=== PATIENT | female | born 1990 | race Caucasian/White ===

== ENCOUNTER 2021-01-18 16:26 | Emergency (ER) | payer BC ==
--- NOTE | 2021-01-18 16:56 | EDM.PDOC ---
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 Pt does not have periods 2/2 PCOS. However, for the purposes of the implantation LMP considered Dec 07. Pt had post procedure quant HCGs. She was doing well until this afternoon yoga class when she developed significant lower abdominal cramping she then went to wipe and noticed some initial dark blood but now is much pumper hand. This is associated with dysuria. No fevers some pain in the lower back as well. No exacerbating or alleviating factors no radiation or other associated symptoms. lower abdomen Pain Score (Numeric/FACES): 7 - Related Data Allergies Allergy/AdvReac Type Severity Reaction Status Date / Time amoxicillin Allergy Hives Verified 01/18/21 16:52 banana Allergy Itching Verified 01/18/21 16:52 Home Meds: Home Meds . [No Known Home Meds] 01/18/21 [History] Estrogen Patch 01/18/21 [History] Sertraline [Zoloft] 150 mg PO QPM 01/18/21 [History] proGESTerone [Progesterone In Oil] 0 mg IM DAILY 01/18/21 [History] ED ROS GENERAL - Review of Systems Review Of Systems: See Below Free Text/Narrative/Comment: General: No fever. Neck: No neck stiffness. Respiratory: No shortness of breath. Cardiac: No chest pain. Gastrointestinal: No nausea or vomiting, + lower abd cramping Urinary: Per HPI Musculoskeletal: No myalgias/arthralgias. Neurologic: No headache. ED EXAM, GENERAL - Physical Exam Exam: See Below Free Text/Narrative:: General Appearance: No acute distress, appears comfortable Skin: No rash HEENT: Normocephalic/atraumatic, sclera anicteric, mucous membranes moist Neck: Normal range of motion Chest and Lungs: Bilateral breath sounds, clear to auscultation Cardiovascular: Regular rate and rhythm, no murmur Abdomen: Soft, non-tender Back: Normal Musculoskeletal: No edema or tenderness Neurologic: Awake, alert, no obvious deficits, moving all extremities Psychiatric: Appropriate, cooperative Departure - Departure Disposition: Home, Self-Care 01 Clinical Impression: Threatened - Discharge Information Instructions: Threatened Miscarriage, [place]azm-to-Fbyu Referrals: PCP,None [Primary Care Provider] - Forms: ED Department Discharge Additional Instructions: You evaluate today on an emergent basis. At this time you are experiencing a threatened miscarriage. As we discussed the ultrasound did show a single live intrauterine however given that there is vaginal bleeding in your first trimester there is increased risk of miscarriage. It is extremely important that she follow-up with [facility] for further monitoring and evaluation. They will be contacting you tomorrow for an appointment. If you doe ve any new or worsening symptoms such as increased vaginal bleeding or pain please return to the emergency department. If they do not contact you tomorrow the numbers provided below. Please contact them for follow-up. [facility] [address] [place], [place] [id number] [facility] [place] [address] The patient is informed of any results of their evaluation and diagnostic workup and all questions are answered. They are given discharge instructions and return precautions. The patient is stable for discharge. The patient states they understand and agree with the plan and that they will return if their symptoms get worse or if they have any new concerns. The following information is given to patients seen in the emergency department who are being discharged to home. This information is to outline your options for follow-up care. We provide all patients seen in our emergency department with a follow-up referral. The need for follow-up, as well as the timing and circumstances, are variable depending upon the specifics of your emergency department visit. If you don't have a primary care physician on staff, we will provide you with a referral. We always advise you to contact your personal physician following an emergency department visit to inform them of the circumstance of the visit and for follow-up with them and/or the need for any referrals to a consulting specialist. The emergency department will also refer you to a specialist when appropriate. This referral assures that you have the opportunity for follow-up care with a specialist. All of these measure are taken in an effort to provide you with optimal care, which includes your follow-up. Under all circumstances we always encourage you to contact your private physician who remains a resource for coordinating your care. When calling for follow-up care, please make the office aware that this follow-up is from your recent emergency room visit. If for any reason you are refused follow-up, please contact the [facility] Emergency Department at and asked to speak to the emergency department charge nurse. - Assessment/Plan Assessment:: 30-year-old female presenting with signs and symptoms most consistent with threatened miscarriage versus UTI. Nontoxic in appearance with benign abdomen. CBC, CMP, quantitative hCG, and ultrasound ordered, pelvic pending. I was just informed by nursing that when she tried to void for urine sample she passed significant blood and clots. 1820: We continue to await blood work. Patient now has significant nausea and some lightheadedness given this 1 L of IV fluid and antinausea medicine will be ordered. Pelvic exam is pending on ultrasound there was a single live intrauterine gestation with a heartbeat. Remainder of ultrasound report is pending. 1856: Patient's vital signs are normal. Patient's pelvic exam reveals a single small dark blood clot in the vaginal vault that was easily removed no direct visualization of the cervix was possible but there is no repooling no signs of active hemorrhage but some slow dark oozing. External cervical os closed on digital exam. Formal US read remains pending. This result, discussion with OB and final disposition signed out to Dr. Hyman. <Dhaval Hyman - Last Filed: 01/19/21 03:23> ED HPI GENERAL MEDICAL PROBLEM - History of Present Illness INITIAL COMMENTS - FREE TEXT/NARRATIVE: Patient was signed out to me by Dr. Maharaj pending ultrasound read and discussion with obstetrics at 7PM Labs reviewed with a CBC revealing a leukocytosis of 13.64 with normal indices. CMP was unremarkable. Quantitative hCG was 19,750. Urinalysis did show hematuria with nitrites however there was a large clot. The radiological images were viewed by myself along with reading the report from the radiologist. Transvaginal OB ultrasound reveals a single live intrauterine gestation with an estimated gestational age of 5 weeks and 5 days. cardiac to be was at 112/min. After imaging I did contact Dr. Montiel to discuss the case with her. She stated that her RN would contact for follow-up tomorrow. In discussion we will obtain a type and screen to evaluate for RhoGam administration. I did discuss the results with the patient. The patient continued to remain stable and her bleeding had improved. I discussed with her that she would need to follow-up closely with obstetrics. She was amenable to this plan. Type and screen reveals a positive therefore no RhoGam will be administered DISPOSITION: The patient was discharged home in stable condition. The patient will follow up with [facility] within 2 to 3 days CONDITION: Fair PROCEDURES: None FINAL IMPRESSION(S)/DIAGNOSES: 1. Acute threatened Dhaval Hyman M.D. Course - Vital Signs Last Recorded V/S: Last Vital Signs Temp 36.6 C 01/18/21 16:27 Pulse 92 01/18/21 20:47 Resp 18 01/18/21 20:47 BP 136/88 01/18/21 20:47 Pulse Ox 98 01/18/21 20:47 - Orders/Labs/Meds Labs: Laboratory Tests 01/18/21 01/18/21 01/18/21 Range/Units 16:50 17:15 17:15 WBC 13.64 H (4.0-11.0) K/uL RBC 4.50 (4.30-5.90) M/uL Hgb 14.0 (12.0-16.0) g/dL Hct 40.1 (36.0-46.0) % MCV 89.1 (80.0-98.0) fL MCH 31.1 (27.0-32.0) pg MCHC 34.9 (31.0-37.0) g/dL RDW Std Deviation 38.4 (28.0-62.0) fl RDW Coeff of Renee 12 (11.0-15.0) % Plt Count 334 (150-400) K/uL MPV 9.00 (7.40-12.00) fL Neut % (Auto) 67.9 (48.0-80.0) % Lymph % (Auto) 23.3 (16.0-40.0) % Braxton % (Auto) 5.5 (0.0-15.0) % Eos % (Auto) 3.1 (0.0-7.0) % Baso % (Auto) 0.2 (0.0-1.5) % Neut # (Auto) 9.3 H (1.4-5.7) K/uL Lymph # (Auto) 3.2 H (0.6-2.4) K/uL Braxton # (Auto) 0.8 (0.0-0.8) K/uL Eos # (Auto) 0.4 (0.0-0.7) K/uL Baso # (Auto) 0.0 (0.0-0.1) K/uL Nucleated RBC % 0.0 /100WBC Nucleated RBCs # 0 K/uL Sodium 137 (136-145) mmol/L Potassium 3.9 (3.5-5.1) mmol/L Chloride 101 (98-107) mmol/L Carbon Dioxide 23.2 (21.0-32.0) mmol/L BUN 12 (7.0-18.0) mg/dL Creatinine 0.8 (0.6-1.0) mg/dL Est Cr Clr Drug Dosing 79.85 mL/min Estimated GFR (MDRD) > 60.0 ml/min Glucose 101 (74-106) mg/dL Calcium 9.0 (8.5-10.1) mg/dL Total Bilirubin 0.2 (0.2-1.0) mg/dL AST 12 L (15-37) IU/L ALT 31 (14-63) IU/L Alkaline Phosphatase 40 L (46-116) U/L Total Protein 7.3 (6.4-8.2) g/dL Albumin 3.4 (3.4-5.0) g/dL Globulin 3.9 (2.6-4.0) g/dL Albumin/Globulin Ratio 0.9 (0.9-1.6) HCG, Quant 42371.0 mIU/mL Urine Color RED Urine Appearance CLOUDY Urine pH 7.0 (5.0-8.0) Ur Specific Rufus 1.010 (1.001-1.035) Urine Protein >=300 H (NEGATIVE) mg/dL Urine Glucose (UA) 100 H (NEGATIVE) mg/dL Urine Ketones 15 H (NEGATIVE) mg/dL Urine Occult Blood LARGE H (NEGATIVE) Urine Nitrite POSITIVE H (NEGATIVE) Urine Bilirubin NEGATIVE (NEGATIVE) Urine Urobilinogen 4.0 H (<2.0) EU/dL Ur Leukocyte Esterase MODERATE H (NEGATIVE) Urine RBC TOO NUMEROUS TO CT H (0-2/HPF) Urine WBC 0-2 (0-5/HPF) Ur Epithelial Cells RARE (NONE-FEW) Urine Bacteria RARE (NEGATIVE) Urinalysis Comment Blood Type Antibody Screen 01/18/21 Range/Units 19:36 WBC (4.0-11.0) K/uL RBC (4.30-5.90) M/uL Hgb (12.0-16.0) g/dL Hct (36.0-46.0) % MCV (80.0-98.0) fL MCH (27.0-32.0) pg MCHC (31.0-37.0) g/dL RDW Std Deviation (28.0-62.0) fl RDW Coeff of Renee (11.0-15.0) % Plt Count (150-400) K/uL MPV (7.40-12.00) fL Neut % (Auto) (48.0-80.0) % Lymph % (Auto) (16.0-40.0) % Braxton % (Auto) (0.0-15.0) % Eos % (Auto) (0.0-7.0) % Baso % (Auto) (0.0-1.5) % Neut # (Auto) (1.4-5.7) K/uL Lymph # (Auto) (0.6-2.4) K/uL Braxton # (Auto) (0.0-0.8) K/uL Eos # (Auto) (0.0-0.7) K/uL Baso # (Auto) (0.0-0.1) K/uL Nucleated RBC % /100WBC Nucleated RBCs # K/uL Sodium (136-145) mmol/L Potassium (3.5-5.1) mmol/L Chloride (98-107) mmol/L Carbon Dioxide (21.0-32.0) mmol/L BUN (7.0-18.0) mg/dL Creatinine (0.6-1.0) mg/dL Est Cr Clr Drug Dosing mL/min Estimated GFR (MDRD) ml/min Glucose (74-106) mg/dL Calcium (8.5-10.1) mg/dL Total Bilirubin (0.2-1.0) mg/dL AST (15-37) IU/L ALT (14-63) IU/L Alkaline Phosphatase (46-116) U/L Total Protein (6.4-8.2) g/dL Albumin (3.4-5.0) g/dL Globulin (2.6-4.0) g/dL Albumin/Globulin Ratio (0.9-1.6) HCG, Quant mIU/mL Urine Color Urine Appearance Urine pH (5.0-8.0) Ur Specific Rufus (1.001-1.035) Urine Protein (NEGATIVE) mg/dL Urine Glucose (UA) (NEGATIVE) mg/dL Urine Ketones (NEGATIVE) mg/dL Urine Occult Blood (NEGATIVE) Urine Nitrite (NEGATIVE) Urine Bilirubin (NEGATIVE) Urine Urobilinogen (<2.0) EU/dL Ur Leukocyte Esterase (NEGATIVE) Urine RBC (0-2/HPF) Urine WBC (0-5/HPF) Ur Epithelial Cells (NONE-FEW) Urine Bacteria (NEGATIVE) Urinalysis Comment Blood Type A POSITIVE Antibody Screen NEGATIVE Meds: Medications Discontinued Medications Generic Name Dose Route Start Last Admin Trade Name Freq PRN Reason Stop Dose Admin Lactated Ringer's 1,000 mls @ 999 mls/hr 01/18/21 18:18 01/18/21 18:27 Ringers, Lactated IV 01/18/21 19:18 999 mls/hr .BOLUS ONE Administration Metoclopramide HCl 5 mg 01/18/21 18:18 01/18/21 18:28 Reglan IVPUSH 01/18/21 18:19 5 mg ONETIME ONE Administration Departure - Departure Time of Disposition: 20:23 Condition: Fair - Discharge Information *PRESCRIPTION DRUG MONITORING PROGRAM REVIEWED*: No *COPY OF PRESCRIPTION DRUG MONITORING REPORT IN PATIENT RAFAELA: No Sepsis Event Note (ED) - Focused Exam Vital Signs: Vital Signs Temp Pulse Resp BP Pulse Ox 01/18/21 20:47 92 18 136/88 98 01/18/21 19:00 94 18 120/66 96 01/18/21 18:30 104 H 17 130/82 99 01/18/21 16:27 36.6 C 107 H 18 151/102 H 97
[2021-01-18 18:08] LABS: BLOOD UREA NITROGEN,BUN 12 mg/dL (7.0-18.0); CARBON DIOXIDE,CO2 23.2 mmol/L (21.0-32.0); CHLORIDE,CL 101 mmol/L (98-107); GLUCOSE RANDOM 101 mg/dL (74-106); POTASSIUM,K 3.9 mmol/L (3.5-5.1); SODIUM,NA 137 mmol/L (136-145)
[2021-01-18] MEDS ORDERED: Metoclopramide 10 MG/2 ML SDV IVPUSH ONE (18:18)
[2021-01-18] MEDS ORDERED: Lactated Ringers 1,000 ML IV ONE (18:18)
--- NOTE | 2021-01-18 19:02 | US ---
HISTORY: Abdominal pain and vaginal bleeding in . TECHNIQUE: Ultrasound of the pelvis using transvaginal technique. COMPARISON: None. FINDINGS: Single intrauterine gestational sac. Gestational sac has somewhat elongated morphology. pole is present. [place]-rump length of 2 mm corresponds to estimated gestational age 5 weeks 5 days. cardiac activity with heart rate 112 beats per minute. Probable 1 mm yolk sac. No perigestational fluid collection. Right ovary measures 3.3 x 2.4 x 3.1 cm. Normal appearance the right ovary. Blood flow present in the right ovary with normal spectral Doppler waveforms. Left ovary is not visualized. No free fluid in the pelvis. IMPRESSION: 1. Single live intrauterine gestation with estimated gestational age 5 weeks 5 days. 2. No perigestational fluid collection. 3. Normal appearing right ovary. Left ovary is not visualized. Dictated by Alex Be MD @ Jan 18 2021 6:56PM Signed by Dr. Alex Be @ Jan 18 2021 7:01PM
== END 2021-01-18 21:00 | disposition home or self-care (01) ==
LOC: MW.ED 16:26
DX: O20.0 Threatened abortion (principal); Z88.0 Allergy status to penicillin; Z91.018 Allergy to other foods; Z3A.01 Less than 8 weeks gestation of pregnancy
CPT/HCPCS: 36415; 76801; 80053; 81001; 84702; 85025; 86850; 86900; 86901; 96374; 99284; J2765; J7120

== ENCOUNTER 2021-09-04 00:30 | Inpatient (IN) | payer BC ==
[2021-09-04] MEDS ORDERED: Tranexamic Acid 1,000 MG in Sodium Chloride 0.9% 100 ML IV PRN (01:19)
[2021-09-04] MEDS ORDERED: Sodium Chloride 0.9% 10 ML SDV IV PRN (01:19)
[2021-09-04] MEDS ORDERED: Lidocaine 1% 50 ML MDV INJECT PRN (01:19)
[2021-09-04] MEDS ORDERED: Misoprostol 200 MCG Tab PO PRN (01:19)
[2021-09-04] MEDS ORDERED: Terbutaline 1 MG/ML SDV SUBCUT PRN (01:19)
[2021-09-04] MEDS ORDERED: Sodium Chloride 0.9% 2.5 ML Syringe FLUSH PRN (01:19)
[2021-09-04] MEDS ORDERED: Water For Irrigation,Sterile 1,000 ML Container IRR PRN (01:19)
[2021-09-04] MEDS ORDERED: Carboprost Tromethamine 250 MCG/1 ML Amp IM PRN (01:19)
[2021-09-04] MEDS ORDERED: Butorphanol 1 MG/ML SDV IVPUSH PRN (01:19)
[2021-09-04] MEDS ORDERED: Sodium Chloride 0.9% 10 ML Syringe FLUSH PRN (01:19)
[2021-09-04] MEDS ORDERED: Methylergonovine 0.2 MG/1 ML Amp IM PRN (01:19)
[2021-09-04] MEDS ORDERED: Oxytocin/0.9 % Sodium Chloride 30 UNIT/500 ML BAG IV SCH ×2 (01:30)
[2021-09-04] MEDS: Lactated Ringers 1,000 ML IV SCH ×5 (02:13→22:30)
[2021-09-04] MEDS: Misoprostol 25 MCG (1/4 of 100 MCG) Tab VAG PRN ×4 (02:14→14:47)
[2021-09-04] MEDS ORDERED: busPIRone 5 MG Tab PO ONE (07:35)
[2021-09-04] MEDS: Labetalol 100 MG Tab PO SCH ×2 (09:36→21:38)
[2021-09-04] MEDS ORDERED: Insulin Regular in 0.9 % NACL 100 ML IV SCH (12:45)
--- NOTE | 2021-09-04 13:34 | PCM.PREANE ---
Preanesthetic Assessment - Anesthesia/Transfusion/Family Hx Anesthesia History: Prior Anesthesia Without Reaction Family History of Anesthesia Reaction: No Transfusion History: No Prior Transfusion(s) - Review of Systems General: Other (Gestational DM requiring insulin) Pulmonary: No Symptoms Cardiovascular: Other (Hypertension well controlled on Beta Tess) Gastrointestinal: No Symptoms Neurological: No Symptoms, Other (Panic attacks which cause numbness in arms and legs) Other: Reports: Anxiety - Physical Assessment NPO Status Date: 09/04/21 NPO Status Time: 12:00 Vital Signs: Last Vital Signs Temp Pulse 83 09/04/21 09:36 Resp BP 127/84 09/04/21 09:36 Pulse Ox Height: 1.57 m Weight: 102.058 kg ASA Class: 2 Mental Status: Alert & Oriented x3 Airway Class: Mallampati = 2 Dentition: Reports: Normal Dentition Thyro-Mental Finger Breadths: 3 Mouth Opening Finger Breadths: 3 ROM/Head Extension: Full Lungs: Clear to Auscultation, Normal Respiratory Effort Cardiovascular: Regular Rate, Regular Rhythm - Lab Values: Laboratory Last Values WBC 8.78 K/uL (4.0-11.0) 09/04/21 01:45 RBC 4.13 M/uL (4.30-5.90) L 09/04/21 01:45 Hgb 12.8 g/dL (12.0-16.0) 09/04/21 01:45 Hct 37.1 % (36.0-46.0) 09/04/21 01:45 MCV 89.8 fL (80.0-98.0) 09/04/21 01:45 MCH 31.0 pg (27.0-32.0) 09/04/21 01:45 MCHC 34.5 g/dL (31.0-37.0) 09/04/21 01:45 RDW Std Deviation 43.1 fl (28.0-62.0) 09/04/21 01:45 RDW Coeff of Renee 13 % (11.0-15.0) 09/04/21 01:45 Plt Count 290 K/uL (150-400) 09/04/21 01:45 MPV 10.10 fL (7.40-12.00) 09/04/21 01:45 Nucleated RBC % 0.0 /100WBC 09/04/21 01:45 Nucleated RBCs # 0 K/uL 09/04/21 01:45 POC Glucose 89 mg/dL (70-99) 09/04/21 12:32 Blood Type A POSITIVE 09/04/21 01:45 Antibody Screen NEGATIVE 09/04/21 01:45 - Allergies Allergies/Adverse Reactions: Allergies Allergy/AdvReac Type Severity Reaction Status Date / Time amoxicillin Allergy Hives Verified 01/18/21 16:52 banana Allergy Itching Verified 01/18/21 16:52 - Blood Blood Available: Yes Product(s) Available: PRBC (Type and Screen) - Anesthesia Plan Pre-Op Medication Ordered: Antacids, Anxiolytic, Beta Tess Beta Tess: Atenolol Med Last Dose Date: 09/04/21 Med Last Dose Time: 08:00 - Acknowledgements Anesthesia Type Planned: Epidural Pt an Appropriate Candidate for the Planned Anesthesia: Yes Alternatives and Risks of Anesthesia Discussed w Pt/Guardian: Yes Pt/Guardian Understands and Agrees with Anesthesia Plan: Yes Additional Comments: Pt comments that she has panic attacks which result in numbness and weakness of arms. Further discussion details that she does not have neurological disease and this only occurs when she has panic attacks. pt expressed concerns that the numb sensation of the epidural could trigger a panic attack. I explained that this was beyond my understanding and that she may desire to discuss this with her mental healthcare provider. I did offer that the epidural can be discontinued should it illicit a panic attack but that restarting the epidural may result in lack of complete coverage. pt denies need to seek further consultation from mental health and states she "will be ok" with numbness associated with epidural. 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: None, Other (See Below) Other OB/BYN History: PCOS, IVF Psychiatric History: Reports: Addiction, Depression - Past Surgical History HEENT Surgical History: Reports: Oral Surgery - SUBSTANCE USE Tobacco Use Status *Q: Never Tobacco User Second Hand Smoke Exposure: No - HOME MEDS Home Medications: Home Meds Sertraline [Zoloft] 150 mg PO QPM 01/18/21 [History] proGESTerone [Progesterone In Oil] 0 mg IM DAILY 01/18/21 [History] Insulin Glarg,Human.Rec.Analog [Lantus] 27 unit SUBCUT BID 09/04/21 [History] Labetalol HCl [Labetalol] 100 mg PO BID 09/04/21 [History] busPIRone [Buspar] 20 mg PO 09/04/21 [History] - CURRENT (IN HOUSE) MEDS Current Meds: Current Medications Butorphanol Tartrate (Butorphanol 1 Mg/Ml Sdv) 1 mg IVPUSH Q1H PRN PRN Reason: Pain (severe 7-10) Carboprost Tromethamine (Carboprost Tromethamine 250 Mcg/1 Ml Amp) 250 mcg IM ASDIRECTED PRN PRN Reason: Post Hemorrhage Oxytocin/Sodium Chloride (Oxytocin 30 Unit In Ns 0.9% 500 Ml Premix) 30 unit in 500 mls @ 250 mls/hr IV TITRATE POORNIMA Tranexamic Acid 1,000 mg/ (Sodium Chloride) 110 mls @ 660 mls/hr IV ONETIME PRN PRN Reason: Bleeding Oxytocin/Sodium Chloride (Oxytocin 30 Unit In Ns 0.9% 500 Ml Premix) 30 unit in 500 mls @ 2 mls/hr IV TITRATE POORNIMA; Protocol Lactated Ringer's (Ringers, Lactated) 1,000 mls @ 150 mls/hr IV ASDIRECTED [facility] Last Admin: 09/04/21 10:53 Dose: 150 mls/hr Documented by: Insulin Regular in 0.9 % NACL (Myxredlin In Ns 100 Unit/100 Ml) 100 mls @ 0.5 mls/hr IV TITRATE [facility]; Protocol Dextrose/Lactated Ringer's (Dextrose 5%-Lactated Ringers) 1,000 mls @ 100 ml s/hr IV ASDIRECTED [facility] Labetalol HCl (Labetalol 100 Mg Tab) 100 mg PO BID [facility] Last Admin: 09/04/21 09:36 Dose: 100 mg Documented by: Lidocaine HCl (Lidocaine 1% 50 Ml Mdv) 50 ml INJECT ONETIME PRN PRN Reason: Laceration repair Methylergonovine Maleate (Methylergonovine 0.2 Mg/1 Ml Amp) 0.2 mg IM ASDIRECTED PRN PRN Reason: Post Hemorrhage Misoprostol (Misoprostol 200 Mcg Tab) 200 mcg PO ONETIME PRN PRN Reason: Post Hemorrhage Misoprostol (Misoprostol 25 Mcg (1/4 Of 100 Mcg) Tab) 25 mcg VAG Q4H PRN PRN Reason: Cervical Ripening Last Admin: 09/04/21 10:44 Dose: 25 mcg Documented by: Sodium Chloride (Sodium Chloride 0.9% 10 Ml Syringe) 10 ml FLUSH ASDIRECTED PRN PRN Reason: Keep Vein Open Sodium Chloride (Sodium Chloride 0.9% 2.5 Ml Syringe) 2.5 ml FLUSH ASDIRECTED PRN PRN Reason: Keep Vein Open Sodium Chloride (Sodium Chloride 0.9% 10 Ml Sdv) 10 ml IV ASDIRECTED PRN PRN Reason: IV Use Sterile Water (Water For Irrigation,Sterile 1,000 Ml Container) 1,000 ml IRR ASDIRECTED PRN PRN Reason: delivery Terbutaline Sulfate (Terbutaline 1 Mg/Ml Sdv) 0.25 mg SUBCUT ASDIRECTED PRN PRN Reason: Tacysystole Discontinued Medications Buspirone HCl (Buspirone 5 Mg Tab) 20 mg PO ONETIME ONE Stop: 09/04/21 07:36 Last Admin: 09/04/21 09:37 Dose: 20 mg Documented by:
[2021-09-04] MEDS: Ondansetron 4 MG/2 ML SDV IVPUSH PRN (18:04)
[2021-09-04] MEDS: Dextrose 5%-Lactated Ringers 1,000 ML IV SCH (19:01)
[2021-09-04] MEDS ORDERED: Ropivacaine HCl/PF 200 ML ONE (19:47)
[2021-09-04] MEDS ORDERED: ePHEDrine 50 MG/ML SDV IVPUSH PRN (20:35)
--- NOTE | 2021-09-04 20:35 | PCM.POSTAN ---
POST ANESTHESIA ASSESSMENT - MENTAL STATUS Mental Status: Alert, Oriented - VITAL SIGNS Vital Signs: Last Vital Signs Temp Pulse 83 09/04/21 09:36 Resp BP 127/84 09/04/21 09:36 Pulse Ox - RESPIRATORY Respiratory Status: Respiratory Rate WNL, Airway Patent, O2 Saturation Stable - CARDIOVASCULAR CV Status: Pulse Rate WNL, Blood Pressure Stable - GASTROINTESTINAL GI Status: No Symptoms - POST OP HYDRATION Hydration Status: Adequate & Stable
--- NOTE | 2021-09-04 20:35 | PCM.SN.2 ---
Time Documentation - Pre-Procedure Checklist Attending Provider Aware: Yes Chart Reviewed: Yes Consent Signed: Yes Labs Reviewed: Yes VS/FHR Reviewed: Yes Patient Identification Confirmation Method: Reports: Chart Visual, Verbal Patient Pt an Appropriate Candidate for the Planned Anesthesia: Yes Alternatives and Risks of Anesthesia Discussed w Pt/Guardian: Yes - Procedure Procedure Start Date: 09/04/21 Procedure Start Time: 19:[address]: Reports: Blood Pressure, Heart Rate, SPO2 Functional IV: Yes Safety Measures: Reports: Patient Identified, Procedure Verified, Site Verified, Procedure Time Out Patient Position: Reports: Sitting Prep: Reports: Betadine x3 Local Anesthetic: Reports: Intradermal Wheal w Lidocaine 1% (3ml) Regional Placement Level: Reports: L3-4 Needle: Reports: 17 g Touhy Approach: Reports: Midline Technique: Reports: IKE Glass Syringe IKE Needle Depth (cm): 6.5 cm Parasthesia: Reports: None Fluid Obtained: Reports: None Catheter Depth at Skin (cm): 15 cm Test Dose Time: 20:07 Test Dose Medication: Reports: Lidocaine 1.5% w Epinephrine 1:200,000 (5ml) Test Dose Response: Reports: Negative Loading Dose Time: 20:18 Loading Dose Medication: Ropivicaine 0.2% Loading Dose Patient Position: Supine Continuous Infusion Start Time: 20:19 Continuous Infusion Medication: Ropivicaine 0.2% Continuous Infusion Rate: 10 Continuous Infusion PCS Bolus Option: 4 Continuous Infusion Lockout Dose (cc/hr): 15 Patient Position Post Placement: Reports: Supline/HOMAR Post-procedure Pain Level: 2 Level Achieved: T4 VS and FHR Monitored in Unit Post Placement: Yes Procedure End Date: 09/04/21 Procedure End Time: 20:19 Procedure Comment: Sterile technique maintained throughout placement.
[2021-09-04] MEDS ORDERED: Ropivacaine/PF 400 MG/200 ML PCA EPIDUR SCH (20:45)
[2021-09-04] MEDS: Sertraline 100 MG Tab PO SCH (21:40)
[2021-09-04] MEDS: Calcium Carbonate 500 MG Tab.Chew PO PRN (22:26)
[2021-09-04] MEDS ORDERED: Citric Acid/Sodium Citrate Solution 30 ML Cup PO ONE (23:20)
[2021-09-05] MEDS: Ondansetron 4 MG/2 ML SDV IVPUSH PRN ×3 (00:17→12:28)
[2021-09-05] MEDS: Lactated Ringers 1,000 ML IV SCH ×2 (05:19→13:46)
[2021-09-05] MEDS: Dextrose 5%-Lactated Ringers 1,000 ML IV SCH ×2 (05:20→13:45)
[2021-09-05] MEDS: Calcium Carbonate 500 MG Tab.Chew PO PRN (05:38)
[2021-09-05] MEDS: Labetalol 100 MG Tab PO SCH (08:57)
[2021-09-05] MEDS: busPIRone 5 MG Tab PO SCH (09:32)
[2021-09-05] MEDS ORDERED: Ropivacaine HCl/PF 200 ML ONE (10:53)
[2021-09-05] MEDS ORDERED: Acetaminophen 500 MG Tab PO ONE (15:06)
[2021-09-05] MEDS ORDERED: Acetaminophen 500 MG Tab ONE (15:09)
[2021-09-05] MEDS ORDERED: Clindamycin Phosphate in D5W 900 MG in Premix Bag 1 BAG IV ONE ×2 (17:36)
[2021-09-05] MEDS ORDERED: Citric Acid/Sodium Citrate Solution 30 ML Cup PO ONE (17:36)
[2021-09-05] MEDS ORDERED: Glycopyrrolate 0.2 MG/ML SDV ONE (18:24)
[2021-09-05] MEDS ORDERED: Oxytocin 10 Units/1 ML SDV ONE (18:24)
[2021-09-05] MEDS ORDERED: ePHEDrine 50 MG/ML SDV ONE (18:24)
[2021-09-05] MEDS ORDERED: Morphine PF 10 MG/10 ML SDV ONE (18:35)
[2021-09-05] MEDS ORDERED: Oxytocin 10 Units/1 ML SDV IM PRN (19:14)
[2021-09-05] MEDS ORDERED: Acetaminophen/oxyCODONE 325-5 MG Tab PO PRN (19:14)
[2021-09-05] MEDS ORDERED: diphenhydrAMINE 50 MG/ML SDV IVPUSH PRN (19:14)
[2021-09-05] MEDS ORDERED: Ondansetron 4 MG/2 ML SDV IVPUSH PRN (19:14)
[2021-09-05] MEDS ORDERED: Bisacodyl 10 MG Supp RECTAL PRN (19:14)
[2021-09-05] MEDS ORDERED: Lanolin 100% Cream 7 GM Tube TOP PRN (19:14)
[2021-09-05] MEDS ORDERED: Lactated Ringers 1,000 ML IV SCH (19:15)
--- NOTE | 2021-09-05 19:26 | PCM.OPNOTE ---
- General Post-Op/Procedure Note Date of Surgery/Procedure: 09/05/21 Operative Procedure(s): Primary LTCS Findings: Viable female APGARs 7, 6, 8 weight 3480 gm. Delivery intact placenta with 3V cord Pre Op Diagnosis: 38/6 week IUP. Arrest of dilation. GDM insulin dependent. Chronic HTN. IVF conception Post-Op Diagnosis: Same Anesthesia Technique: Epidural Primary Surgeon: Tammy Oconnell Fluid Replacement, Intraop: 1,500 EBL in mLs: 800 Complications: none known Condition: Stable Free Text/Narrative:: Intake & Output 09/05/21 09/05/21 09/05/21 06:59 14:59 22:59 Output Total 800 450 Balance -800 -450 Dictation [id number]
--- NOTE | 2021-09-05 19:43 | PCM48HPAN ---
Post Anesthesia Note - EVALUATION WITHIN 48HRS OF ANESTHETIC Vital Signs in Normal Range: Yes Patient Participated in Evaluation: Yes Respiratory Function Stable: Yes Airway Patent: Yes Cardiovascular Function Stable: Yes Hydration Status Stable: Yes Pain Control Satisfactory: Yes Nausea and Vomiting Control Satisfactory: Yes Mental Status Recovered: Yes Vital Signs: Last Vital Signs Temp 37.8 C 09/05/21 15:12 Pulse 91 09/05/21 08:57 Resp BP 119/71 09/05/21 08:57 Pulse Ox
--- NOTE | 2021-09-05 19:43 | PCM.POSTAN ---
POST ANESTHESIA ASSESSMENT - MENTAL STATUS Mental Status: Alert, Oriented - VITAL SIGNS Vital Signs: Last Vital Signs Temp 37.8 C 09/05/21 15:12 Pulse 91 09/05/21 08:57 Resp BP 119/71 09/05/21 08:57 Pulse Ox - RESPIRATORY Respiratory Status: Respiratory Rate WNL, Airway Patent, O2 Saturation Stable - CARDIOVASCULAR CV Status: Pulse Rate WNL, Blood Pressure Stable - GASTROINTESTINAL GI Status: No Symptoms - POST OP HYDRATION Hydration Status: Adequate & Stable
[2021-09-05] MEDS: Ketorolac 30 MG/ML SDV IVPUSH SCH (21:06)
[2021-09-05] MEDS: Docusate Sodium 100 MG Cap PO SCH (21:14)
[2021-09-05] MEDS: Sertraline 100 MG Tab PO SCH (21:14)
--- NOTE | 2021-09-05 21:36 | OR ---
SURGEON: Tammy Oconnell M.D. DATE OF PROCEDURE: 09/05/2021 PREOPERATIVE DIAGNOSES: 1. 38 and 6 weeks' intrauterine . 2. Arrest of dilation. 3. Gestational diabetes, insulin dependent. 4. Chronic hypertension. 5. In vitro fertilisation conception. POSTOPERATIVE DIAGNOSES: 1. 38 and 6 weeks' intrauterine . 2. Arrest of dilation. 3. Gestational diabetes, insulin dependent. 4. Chronic hypertension. 5. In vitro fertilisation conception. PROCEDURE: Primary low-transverse section. PRIMARY SURGEON: Tammy Oconnell M.D. ANESTHESIA: Epidural. ESTIMATED BLOOD LOSS: 800 mL. FLUIDS: 1500 mL of crystalloid in the OR. COMPLICATIONS: None known. FINDINGS: Viable female. scores of 7 at one minute, 6 at five minutes, 8 at 10 minutes. Delivery of intact placenta, 3-vessel cord. DISPOSITION: to nursery, mom in LDRP. PROCEDURE DETAILS: Lucila is a 31-year-old, G1, P0, at 38 and 6 weeks' gestational age, who presented early Tuesday morning for induction of labor due to her gestational diabetes, chronic hypertension, and history of IVF conception. She was initiated on Cytotec ripening underwent four doses of this along with cervical Pastor balloon. This balloon was then extruded and she was found to be 4 cm, 70% effaced, -2 station. She is group B beta strep negative, underwent amniotomy. Clear fluid was returned. For most of this, she has been having category 1 heart tones throughout the day. I began Pitocin and titrated this to an adequate contraction pattern. An IUPC was placed. Shortly after, she received her epidural and was more comfortable. The patient was 4 to 5 cm, 80% effaced, -2 station. Thereafter, even despite adequate contraction pattern over the next number of hours, she made no cervical change. In fact, the head was starting to have caput. She was noted to have a fairly narrow suprapubic arch. Therefore, options were discussed with her. At this juncture, she would like to proceed with delivery. Risks of procedure were discussed, proper consent obtained. The patient was taken to the operating room where she underwent re-bolus of her epidural, was placed in dorsal lithotomy position with leftward tilt. SCDs to lower extremities, Pastor to gravity, was prepped and draped in the usual sterile fashion. Time-out was performed. Anesthesia was tested and found to be adequate. Pfannenstiel skin incision was created and carried down to the level of the rectus fascia which was incised in midline and lateralized on either side sharply and bluntly. The superior aspect of the fascia was tented upward, dissected sharply and bluntly from the underlying muscle. In similar aspect, this was performed with the inferior aspect of fascia. Rectus muscle was in midline. Peritoneum was entered. Rectus muscle and peritoneum were now lateralized bluntly. Uterine position and position palpated. Self-retaining retractor was gently placed. The bladder was quite distended and had not been draining properly due to the head position. Therefore, this was reduced. Bladder flap was created sharply and bluntly and bladder was mobilized away from lower uterine segment. Low transverse hysterotomy was then performed. Uterine cavity was entered with blunt end of the scalpel. Hysterotomy was lateralized bluntly. The infant's head was flexed and delivered with fundal pressure being applied, followed by anterior shoulder, posterior shoulder, and remainder of body without difficulty. The 's oropharynx and nares were bulb-suctioned. After a delay, cord was clamped x2 and cut. was handed off to attending operation shift supervisor with nursery staff. Cord arterial, cord venous, cord blood sampling was obtained. The placenta was now delivered. Uterine cavity was cleared of all clot and debris. Hysterotomy was repaired using 0 Vicryl in continuous running locked fashion followed by a re-imbricating layer. Area of bleeding along the midline was re-plicated with three [id number] sutures. Did use a CT-2 needle for this. Hemostasis was thereafter evident. Uterus remained firm. Colonic gutters were cleared of all clot and debris, well irrigated and suction dried. Hemostasis along the hysterotomy was once again inspected and found to be hemostatic. Self-retaining tractor gently removed. Bladder blade was placed. Hysterotomy was inspected and found to be hemostatic. Rectus muscles and peritoneum were now reapproximated using 0 Vicryl in inverted mattress suture technique. Anterior aspect of the fascia and posterior fascia were closely inspected. Any areas of oozing were cauterized. The rectus fascia was now reapproximated using 0 Vicryl in continuous running fashion beginning laterally on either side and meeting in the midline. Subcutaneous tissues well irrigated and suction dried. Any areas of oozing were cauterized. Region was well irrigated and suction dried. Hemostasis appeared evident. Skin edges were reapproximated using 3-0 Vicryl in subcuticular fashion with Vladimir needle. Thereafter, a MERARY dressing was placed. The silver lining was placed along the incision after cleaning and drying the area well, followed by placement of the MERARY dressing and vacuum suction was able to be achieved. Sponge, instrument, and needle counts correct x2. The patient tolerated the procedure well overall. She will go to PACU in stable condition, to nursery. WHITLEY / NELLI /[id number] MEERA
[2021-09-06] MEDS ORDERED: Acetaminophen 1,000 MG in Premix Bag 1 BAG IV ONE ×2
[2021-09-06] MEDS: Ketorolac 30 MG/ML SDV IVPUSH SCH ×4 (03:50→22:13)
[2021-09-06] MEDS: Docusate Sodium 100 MG Cap PO SCH ×2 (08:24→20:57)
[2021-09-06] MEDS: busPIRone 5 MG Tab PO SCH (08:27)
--- NOTE | 2021-09-06 11:25 | PCM.PNPP ---
- General Info Date of Service: 09/06/21 Functional Status: Reports: Pain Controlled, Tolerating Diet - Review of Systems General: Reports: Fatigue. Denies: Fever, Weakness Pulmonary: Denies: Shortness of Breath Cardiovascular: Denies: Chest Pain, Palpitations, Lightheadedness Gastrointestinal: Denies: Abdominal Pain, Nausea, Vomiting Genitourinary: Denies: Flank Pain Musculoskeletal: Reports: No Symptoms Skin: Reports: No Symptoms Neurological: Reports: No Symptoms Psychiatric: Reports: No Symptoms - General Info Date of Service: 09/06/21 - Patient Data Vital Signs - Most Recent: Last Vital Signs Temp 37.2 C 09/06/21 09:44 Pulse 95 09/06/21 09:44 Resp 18 09/06/21 09:44 BP 129/83 09/06/21 09:44 Pulse Ox 95 09/06/21 09:44 Weight - Most Recent: 102.058 kg I&O - Last 24 Hours: Intake & Output 09/05/21 09/06/21 09/06/21 22:59 06:59 14:59 Intake Total 1500 Output Total 450 1010 Balance 1050 -1010 Lab Results - Last 24 Hours: Laboratory Results - last 24 hr 09/05/21 09/05/21 09/05/21 Range/Units 11:31 12:27 13:31 Hgb (12.0-16.0) g/dL Hct (36.0-46.0) % Cord ABG pH (7.18-7.38) Cord ABG Base Excess (-10--2) Cord VBG pH (7.25-7.45) Cord VBG Base Excess (-10--2) POC Glucose 90 95 89 (70-99) mg/dL 09/05/21 09/05/21 09/05/21 Range/Units 14:29 15:37 16:30 Hgb (12.0-16.0) g/dL Hct (36.0-46.0) % Cord ABG pH (7.18-7.38) Cord ABG Base Excess (-10--2) Cord VBG pH (7.25-7.45) Cord VBG Base Excess (-10--2) POC Glucose 85 94 87 (70-99) mg/dL 09/05/21 09/05/21 09/06/21 Range/Units 17:40 18:19 05:35 Hgb 9.7 L (12.0-16.0) g/dL Hct 28.5 L (36.0-46.0) % Cord ABG pH 7.528 H (7.18-7.38) Cord ABG Base Excess 0 H (-10--2) Cord VBG pH 7.373 (7.25-7.45) Cord VBG Base Excess -2 (-10--2) POC Glucose 95 (70-99) mg/dL 09/06/21 Range/Units 06:02 Hgb (12.0-16.0) g/dL Hct (36.0-46.0) % Cord ABG pH (7.18-7.38) Cord ABG Base Excess (-10--2) Cord VBG pH (7.25-7.45) Cord VBG Base Excess (-10--2) POC Glucose 76 (70-99) mg/dL Med Orders - Current: Current Medications Bisacodyl (Bisacodyl 10 Mg Supp) 10 mg RECTAL ONETIME PRN PRN Reason: Constipation Buspirone HCl (Buspirone 5 Mg Tab) 20 mg PO DAILY [facility] Last Admin: 09/06/21 08:27 Dose: 20 mg Documented by: Calcium Carbonate/Glycine (Calcium Carbonate 500 Mg Tab.Chew) 1,000 mg PO Q2HR PRN PRN Reason: Indigestion Last Admin: 09/05/21 05:38 Dose: 1,000 mg Documented by: Carboprost Tromethamine (Carboprost Tromethamine 250 Mcg/1 Ml Amp) 250 mcg IM ASDIRECTED PRN PRN Reason: Post Hemorrhage Diphenhydramine HCl (Diphenhydramine 50 Mg/Ml Sdv) 25 mg IVPUSH Q6H PRN PRN Reason: Itching or Nausea Last Admin: 09/06/21 01:03 Dose: 25 mg Documented by: Docusate Sodium (Docusate Sodium 100 Mg Cap) 100 mg PO BID [facility] Last Admin: 09/06/21 08:24 Dose: 100 mg Documented by: Emollient Ointment (Lanolin 100% Cream 7 Gm Tube) 0 gm TOP ASDIRECTED PRN PRN Reason: Sore Nipples Last Admin: 09/06/21 03:47 Dose: 1 tube Documented by: Ephedrine Sulfate (Ephedrine 50 Mg/Ml Sdv) 10 mg IVPUSH Q1M PRN PRN Reason: Hypotension Tranexamic Acid 1,000 mg/ (Sodium Chloride) 110 mls @ 660 mls/hr IV ONETIME PRN PRN Reason: Bleeding Oxytocin/Sodium Chloride (Oxytocin 30 Unit In Ns 0.9% 500 Ml Premix) 30 unit in 500 mls @ 2 mls/hr IV TITRATE [facility]; Protocol Last Titration: 09/05/21 17:08 Dose: 0 munits/min, 0 mls/hr Documented by: Lactated Ringer's (Ringers, Lactated) 1,000 mls @ 150 mls/hr IV ASDIRECTED [facility] Last Admin: 09/05/21 13:46 Dose: 25 mls/hr Documented by: Lactated Ringer's (Ringers, Lactated) 1,000 mls @ 125 mls/hr IV ASDIRECTED [facility] Last Admin: 09/06/21 00:55 Dose: 125 mls/hr Documented by: Ibuprofen (Ibuprofen 800 Mg Tab) 800 mg PO Q8H PRN PRN Reason: Cramping Ketorolac Tromethamine (Ketorolac 30 Mg/Ml Sdv) 30 mg IVPUSH Q6H [facility] Stop: 09/06/21 20:31 Last Admin: 09/06/21 10:28 Dose: 30 mg Documented by: Labetalol HCl (Labetalol 100 Mg Tab) 100 mg PO BID [facility] Last Admin: 09/05/21 08:57 Dose: 100 mg Documented by: Miscellaneous Medication (Phenylephrine Hcl In 0.9% Nacl 1 Mg/10 Ml Syringe) 0.1 mg IVPUSH Q1M PRN PRN Reason: Hypotension Ondansetron HCl (Ondansetron 4 Mg/2 Ml Sdv) 4 mg IVPUSH Q6H PRN PRN Reason: Nausea/Vomiting Last Admin: 09/05/21 12:28 Dose: 4 mg Documented by: Ondansetron HCl (Ondansetron 4 Mg/2 Ml Sdv) 4 mg IVPUSH Q4H PRN PRN Reason: Nausea/Vomiting Oxycodone/Acetaminophen (Acetaminophen/Oxycodone 325-5 Mg Tab) 1 tab PO Q4H PRN PRN Reason: Pain (severe 7-10) Oxycodone/Acetaminophen (Acetaminophen/Oxycodone 325-5 Mg Tab) 2 tab PO Q4H PRN PRN Reason: Pain (severe 7-10) Oxytocin (Oxytocin 10 Units/1 Ml Sdv) 10 unit IM ASDIRECTED PRN PRN Reason: Excessive Vaginal Bleeding Ropivacaine (Ropivacaine/Pf 400 Mg/200 Ml Special Delivery Mail Carrier) 400 mg EPIDUR ASDIRECTED [facility] Sertraline HCl (Sertraline 100 Mg Tab) 150 mg PO BEDTIME [facility] Last Admin: 09/05/21 21:14 Dose: 150 mg Documented by: Sodium Chloride (Sodium Chloride 0.9% 10 Ml Syringe) 10 ml FLUSH ASDIRECTED PRN PRN Reason: Keep Vein Open Sodium Chloride (Sodium Chloride 0.9% 2.5 Ml Syringe) 2.5 ml FLUSH ASDIRECTED P RN PRN Reason: Keep Vein Open Discontinued Medications Acetaminophen (Acetaminophen 500 Mg Tab) 1,000 mg PO ONETIME ONE Stop: 09/05/21 15:07 Last Admin: 09/05/21 15:12 Dose: 1,000 mg Documented by: Acetaminophen (Acetaminophen 500 Mg Tab) Confirm Administered Dose 1,000 mg .ROUTE .STK-MED ONE Stop: 09/05/21 15:10 Buspirone HCl (Buspirone 5 Mg Tab) 20 mg PO ONETIME ONE Stop: 09/04/21 07:36 Last Admin: 09/04/21 09:37 Dose: 20 mg Documented by: Butorphanol Tartrate (Butorphanol 1 Mg/Ml Sdv) 1 mg IVPUSH Q1H PRN PRN Reason: Pain (severe 7-10) Last Admin: 09/04/21 18:28 Dose: 1 mg Documented by: Citric Acid/Sodium Citrate (Citric Acid/Sodium Citrate Solution 30 Ml Cup) 30 ml PO ONETIME ONE Stop: 09/04/21 23:21 Last Admin: 09/04/21 23:33 Dose: 30 ml Documented by: Citric Acid/Sodium Citrate (Citric Acid/Sodium Citrate Solution 30 Ml Cup) 30 ml PO ONETIME ONE Stop: 09/05/21 17:37 Ephedrine Sulfate (Ephedrine 50 Mg/Ml Sdv) Confirm Administered Dose 50 mg .ROUTE .STK-MED ONE Stop: 09/05/21 18:25 Glycopyrrolate (Glycopyrrolate 0.2 Mg/Ml Sdv) Confirm Administered Dose 0.4 mg .ROUTE .STK-MED ONE Stop: 09/05/21 18:25 Oxytocin/Sodium Chloride (Oxytocin 30 Unit In Ns 0.9% 500 Ml Premix) 30 unit in 500 mls @ 250 mls/hr IV TITRATE [facility] Insulin Regular in 0.9 % NACL (Myxredlin In Ns 100 Unit/100 Ml) 100 mls @ 0.5 mls/hr IV TITRATE [facility]; Protocol Last Titration: 09/05/21 09:30 Dose: 0.5 mls/hr, 0.5 mls/hr Documented by: Dextrose/Lactated Ringer's (Dextrose 5%-Lactated Ringers) 1,000 mls @ 100 mls/hr IV ASDIRECTED [facility] Last Admin: 09/05/21 13:45 Dose: 100 mls/hr Documented by: Ropivacaine (Naropin 0.2%) Confirm Administered Dose 200 mls @ as directed .ROUTE .STK-MED ONE Stop: 09/04/21 19:48 Ropivacaine (Naropin 0.2%) Confirm Administered Dose 200 mls @ as directed .ROUTE .STK-MED ONE Stop: 09/05/21 10:54 Clindamycin Phosphate 900 mg/ (Premix) 50 mls @ 100 mls/hr IV ASDIRECTED ONE Stop: 09/05/21 18:05 Acetaminophen (Ofirmev 1000 Mg/100 Ml) Confirm Administered Dose 100 mls @ as directed .ROUTE .STK-MED ONE Stop: 09/05/21 18:25 Acetaminophen 1,000 mg/ Premix 100 mls @ 400 mls/hr IV NOW ONE Stop: 09/06/21 00:14 Last Admin: 09/06/21 00:58 Dose: 400 mls/hr Documented by: Lidocaine HCl (Lidocaine 1% 50 Ml Mdv) 50 ml INJECT ONETIME PRN PRN Reason: Laceration repair Methylergonovine Maleate (Methylergonovine 0.2 Mg/1 Ml Amp) 0.2 mg IM ASDIRECTED PRN PRN Reason: Post Hemorrhage Misoprostol (Misoprostol 200 Mcg Tab) 200 mcg PO ONETIME PRN PRN Reason: Post Hemorrhage Misoprostol (Misoprostol 25 Mcg (1/4 Of 100 Mcg) Tab) 25 mcg VAG Q4H PRN PRN Reason: Cervical Ripening Last Admin: 09/04/21 14:47 Dose: 25 mcg Documented by: Morphine Sulfate (Morphine Pf 10 Mg/10 Ml Sdv) Confirm Administered Dose 10 mg .ROUTE .STK-MED ONE Stop: 09/05/21 18:36 Oxytocin (Oxytocin 10 Units/1 Ml Sdv) Confirm Administered Dose 30 unit .ROUTE .STK-MED ONE Stop: 09/05/21 18:25 Sodium Chloride (Sodium Chloride 0.9% 10 Ml Sdv) 10 ml IV ASDIRECTED PRN PRN Reason: IV Use Sterile Water (Water For Irrigation,Sterile 1,000 Ml Container) 1,000 ml IRR ASDIRECTED PRN PRN Reason: delivery Terbutaline Sulfate (Terbutaline 1 Mg/Ml Sdv) 0.25 mg SUBCUT ASDIRECTED PRN PRN Reason: Tacysystole - Infant Interaction Support Person: - Recovery Exam Fundal Tone: Firm Fundal Level: 1 Fingerbreadths Below Umbilicus Fundal Placement: Midline Lochia Amount: Small Lochia Color: Rubra/Red Bladder Status: Indwelling Catheter in Place - Exam General: Alert, Oriented Lungs: Normal Respiratory Effort Cardiovascular: Regular Rate, Regular Rhythm GI/Abdominal Exam: Normal Bowel Sounds, Soft Extremities: Pedal Edema (trace). No: Parish's Sign Skin: Warm, Dry, Intact Wound/Incisions: Dressing Dry and Intact Neurological: No New Focal Deficit Psy/Mental Status: Alert, Normal Affect, Normal Mood - Problem List & Annotations (1) Status post primary low transverse section SNOMED Code(s): 834038770, [id number], 741510801, [id number], [id number] Code(s): Z98.891 - HISTORY OF UTERINE SCAR FROM PREVIOUS SURGERY Status: Acute Current Visit: Yes (2) Gestational diabetes SNOMED Code(s): 18300225 Code(s): O24.419 - GESTATIONAL DIABETES MELLITUS IN , UNSP CONTROL Status: Acute Current Visit: Yes (3) Chronic hypertension affecting SNOMED Code(s): 48132848 Code(s): O10.919 - UNSP PRE-EXISTING HTN COMP , UNSP TRIMESTER Status: Acute Current Visit: Yes - Problem List Review Problem List Initiated/Reviewed/Updated: Yes - My Orders Last 24 Hours: My Active Orders 09/05/21 Dinner Regular Diet [DIET] 09/05/21 17:36 Procedure Site Prep Instruct [RC] ASDIRECTED Up ad Frannie [RC] ASDIRECTED Sequential Compression Device [OM.PC] Routine 09/05/21 17:37 Antiembolic Devices [RC] PER UNIT ROUTINE 09/05/21 19:14 Patient Status [ADT] Routine Ambulate [RC] PER UNIT ROUTINE Communication Order [RC] PER UNIT ROUTINE Communication Order [RC] PER UNIT ROUTINE Communication Order [RC] Per Unit Routine May Shower [RC] ASDIRECTED Notify Provider Intake and Out [RC] ASDIRECTED Notify Provider Vital Signs [RC] ASDIRECTED RT Incentive Spirometry [RC] Q2HWA Vital Signs [RC] PER UNIT ROUTINE Acetaminophen/oxyCODONE [Percocet 325-5 MG] 1 tab PO Q4H PRN Acetaminophen/oxyCODONE [Percocet 325-5 MG] 2 tab PO Q4H PRN Lanolin [Lansinoh HPA] See Dose Instructions TOP ASDIRECTED PRN Ondansetron [Zofran] 4 mg IVPUSH Q4H PRN Oxytocin [Pitocin] 10 unit IM ASDIRECTED PRN bisacodyL [Dulcolax] 10 mg RECTAL ONETIME PRN diphenhydrAMINE [Benadryl] 25 mg IVPUSH Q6H PRN Abdominal Binder [OM.PC] Routine Assess Lochia [WOMSER] Per Unit Routine Assess Uterine Involution [WOMSER] Per Unit Routine Breast Pump [WOMSER] Per Unit Routine Heat Therapy [OM.PC] Routine Ice Therapy [OM.PC] Routine Peripheral IV Discontinue [OM.PC] Routine Sequential Compression Device [OM.PC] Per Unit Routine 09/05/21 19:15 Cooling Warming Measures [RC] ASDIRECTED Lactated Ringers [Ringers, Lactated] 1,000 ml IV ASDIRECTED 09/05/21 19:26 Blood Glucose Check, Bedside [RC] TIDAC 09/05/21 20:30 Ketorolac [Toradol] 30 mg IVPUSH Q6H 09/05/21 21:00 Docusate Sodium [Colace] 100 mg PO BID 09/07/21 02:00 Ibuprofen [Motrin] 800 mg PO Q8H PRN - Assessment Assessment:: POD 1 status post Primary LTCS GDM Chronic hypertension - Plan Plan:: Continue postoperative cares. Labs and VS are reassuring. Monitor glucoses today without insulin to see what recommendations for treatment will be made in PP periods. Continue labetalol 100 mg bid. Continue sertraline and buspar for anxiety.
[2021-09-06] MEDS: Labetalol 100 MG Tab PO SCH ×3 (14:58→22:21)
[2021-09-06] MEDS: Acetaminophen/oxyCODONE 325-5 MG Tab PO PRN (19:01)
[2021-09-06] MEDS: Sertraline 100 MG Tab PO SCH (20:57)
[2021-09-07] MEDS: Acetaminophen/oxyCODONE 325-5 MG Tab PO PRN ×4 (00:16→16:55)
[2021-09-07] MEDS ORDERED: Ibuprofen 800 MG Tab PO PRN (02:00)
[2021-09-07] MEDS: Labetalol 100 MG Tab PO SCH (08:28)
[2021-09-07] MEDS: Docusate Sodium 100 MG Cap PO SCH (08:28)
[2021-09-07] MEDS: busPIRone 5 MG Tab PO SCH (08:29)
== END 2021-09-07 18:14 | disposition home or self-care (01) | DRG 540 ==
LOC: MW.OBCHECK 00:30 → MW.OB 01:20 → OBSVTOIN 09-05 18:28 → MW.OB 09-05 22:00
PROVIDERS: ADMIT Obstetrics & Gynecology; ATTEND Obstetrics & Gynecology
PROC: 10D00Z1 Extraction of Products of Conception, Low, Open Approach (ICD-10-PCS; principal; 2021-09-05)
PROC: 3E0R3BZ Introduction of Anesthetic Agent into Spinal Canal, Percutaneous Approach (ICD-10-PCS; 2021-09-05)
PROC: 00HU33Z Insertion of Infusion Device into Spinal Canal, Percutaneous Approach (ICD-10-PCS; 2021-09-05)
PROC: 10H07YZ Insertion of Other Device into Products of Conception, Via Natural or Artificial Opening (ICD-10-PCS; 2021-09-05)
DX: O24.424 Gestational diabetes mellitus in childbirth, insulin controlled (principal); Z3A.38 38 weeks gestation of pregnancy; Z37.0 Single live birth; O10.92 Unspecified pre-existing hypertension complicating childbirth
CPT/HCPCS: 01968; 36415; 59025; 82803; 82947; 85014; 85018; 85027; 86592; 86850; 86900; 86901; A9270-GY; J0131; J0595; J1200; J1815; J1885; J2270; J2405; J2590; J2795; J3490; J7120; J7121

== ENCOUNTER 2021-09-22 17:21 | Emergency (ER) | payer BC ==
--- NOTE | 2021-09-22 19:50 | EDM.PDOC ---
ED HPI GENERAL MEDICAL PROBLEM - General Chief Complaint: General Stated Complaint: POSSIBLE INFECTION Time Seen by Provider: 09/22/21 17:42 Source of Information: Reports: Patient History Limitations: Reports: No Limitations - History of Present Illness INITIAL COMMENTS - FREE TEXT/NARRATIVE: Presents reporting pelvic pain over the bladder. She is also worried about a wound infection from her . She delivered a term infant by 16 days ago. She was induced for gestational diabetes. due to failure to progress. No problems. On 09/10 she had some dysuria, a positive urine sample and was treated with 10 days of Macrobid which she just finished. A review of the records indicates the urine specimen grew out E. coli susceptible to amoxicillin Amox with Clav, cefazolin, ceftriaxone, Cipro, levofloxacin, nitrofurantoin, tobramycin, and trimethoprim Sulfamethoxazole. Currently no dysuria but states her urine "looked funny" the last couple of days. Her incision is closed but has a little bit of redness around it. She has been afebrile, no vomiting, eating and drinking okay, no diarrhea. Abdomen Pain Score (Numeric/FACES): 7 - Related Data Allergies Allergy/AdvReac Type Severity Reaction Status Date / Time amoxicillin Allergy Hives Verified 09/22/21 17:41 banana Allergy Itching Verified 09/22/21 17:41 Home Meds: Home Meds Sertraline [Zoloft] 150 mg PO QPM 01/18/21 [History] Insulin Glarg,Human.Rec.Analog [Lantus] 27 unit SUBCUT BID 09/04/21 [History] Labetalol HCl [Labetalol] 100 mg PO BID 09/04/21 [History] busPIRone [Buspar] 20 mg PO 09/04/21 [History] Cefdinir 300 mg PO Q12HR #14 capsule 09/22/21 [Rx] Past Medical History - Past Health History Medical/Surgical History: Denies Medical/Surgical History 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 ED EXAM, GENERAL - Physical Exam Exam: See Below Exam Limited By: No Limitations General Appearance: Alert, No Apparent Distress Ears: Normal External Exam Nose: Normal Inspection Throat/Mouth: Normal Inspection Head: Atraumatic, Normocephalic Neck: Normal Inspection Respiratory/Chest: No Respiratory Distress, Lungs Clear, Normal Breath Sounds Cardiovascular: Normal Peripheral Pulses, Regular Rate, Rhythm, No Murmur GI/Abdominal: Soft, No Distention, Other (midline low over bladder tenderness) Back Exam: Normal Inspection Extremities: Normal Inspection Neurological: Alert, Oriented, Normal Cognition Psychiatric: Normal Affect, Normal Mood Skin Exam: Other (Incision clean, dry, intact. Slight pink but soft around parts of incision. No purulent drainage) Lymphatic: No Adenopathy Course - Vital Signs Last Recorded V/S: Last Vital Signs Temp 36.5 C 09/22/21 17:37 Pulse 100 09/22/21 17:37 Resp 20 09/22/21 17:37 BP 134/78 09/22/21 17:37 Pulse Ox 97 09/22/21 17:37 - Orders/Labs/Meds Orders: Active Orders 24 hr Category Date Time Status CMP [COMPREHENSIVE METABOLIC PN,CMP] [CHEM] Stat Lab 09/22/21 19:14 Received Labs: Laboratory Tests 09/22/21 09/22/21 Range/Units 18:00 19:14 WBC 11.48 H (4.0-11.0) K/uL RBC 3.82 L (4.30-5.90) M/uL Hgb 11.2 L (12.0-16.0) g/dL Hct 34.0 L (36.0-46.0) % MCV 89.0 (80.0-98.0) fL MCH 29.3 (27.0-32.0) pg MCHC 32.9 (31.0-37.0) g/dL RDW Std Deviation 42.4 (28.0-62.0) fl RDW Coeff of Renee 13 (11.0-15.0) % Plt Count 566 H (150-400) K/uL MPV 8.70 (7.40-12.00) fL Neut % (Auto) 76.9 (48.0-80.0) % Lymph % (Auto) 15.8 L (16.0-40.0) % [place] % (Auto) 4.7 (0.0-15.0) % Eos % (Auto) 2.1 (0.0-7.0) % Baso % (Auto) 0.5 (0.0-1.5) % Neut # (Auto) 8.8 H (1.4-5.7) K/uL Lymph # (Auto) 1.8 (0.6-2.4) K/uL [place] # (Auto) 0.5 (0.0-0.8) K/uL Eos # (Auto) 0.2 (0.0-0.7) K/uL Baso # (Auto) 0.1 (0.0-0.1) K/uL Nucleated RBC % 0.0 /100WBC Nucleated RBCs # 0 K/uL Urine Color BROWN Urine Appearance SLT CLOUDY Urine pH 6.0 (5.0-8.0) Ur Specific [place] 1.025 (1.001-1.035) Urine Protein 100 H (NEGATIVE) mg/dL Urine Glucose (UA) NEGATIVE (NEGATIVE) mg/dL Urine Ketones NEGATIVE (NEGATIVE) mg/dL Urine Occult Blood LARGE H (NEGATIVE) Urine Nitrite NEGATIVE (NEGATIVE) Urine Bilirubin NEGATIVE (NEGATIVE) Urine Urobilinogen 0.2 (<2.0) EU/dL Ur Leukocyte Esterase LARGE H (NEGATIVE) Urine RBC TOO NUMEROUS TO CT H (0-2/HPF) Urine WBC TO NUMEROUS TO COUNT H (0-5/HPF) Ur Epithelial Cells FEW (NONE-FEW) Urine Bacteria FEW (NEGATIVE) Departure - Departure Time of Disposition: 20:22 Disposition: Home, Self-Care 01 Condition: Good Clinical Impression: UTI (urinary tract infection) Qualifiers: Urinary tract infection type: acute cystitis Hematuria presence: with hematuria Qualified Code(s): N30.01 - Acute cystitis with hematuria - Discharge Information Referrals: PCP,None [Primary Care Provider] - Tammy Oconnell MD [Physician] - Additional Instructions: The following information is given to patients seen in the emergency department who are being discharged to home. This information is to outline your options for follow-up care. We provide all patients seen in our emergency department with a follow-up referral. The need for follow-up, as well as the timing and circumstances, are variable depending upon the specifics of your emergency department visit. If you don't have a primary care physician on staff, we will provide you with a referral. We always advise you to contact your personal physician following an emergency department visit to inform them of the circumstance of the visit and for follow-up with them and/or the need for any referrals to a consulting specialist. The emergency department will also refer you to a specialist when appropriate. This referral assures that you have the opportunity for follow-up care with a specialist. All of these measure are taken in an effort to provide you with opti mal care, which includes your follow-up. Under all circumstances we always encourage you to contact your private physician who remains a resource for coordinating your care. When calling for follow-up care, please make the office aware that this follow-up is from your recent emergency room visit. If for any reason you are refused follow-up, please contact the [facility] Emergency Department at and asked to speak to the emergency department charge nurse. [facility] [address] [place] [id number] 1. Drink large amounts of fluids 2. Take your antibiotic twice daily. 3. Follow-up with Dr. Oconnell in the clinic 4. Return promptly for breathing problems, new or worsening pain, elevated heart rate, fevers Sepsis Event Note (ED) - Evaluation Sepsis Screening Result: No Definite Risk - Focused Exam Vital Signs: Vital Signs Temp Pulse Resp BP Pulse Ox 09/22/21 17:37 36.5 C 100 20 134/78 97 - My Orders Last 24 Hours: My Active Orders 09/22/21 19:14 CMP [COMPREHENSIVE METABOLIC PN,CMP] [CHEM] Stat - Assessment/Plan Last 24 Hours: My Active Orders 09/22/21 19:14 CMP [COMPREHENSIVE METABOLIC PN,CMP] [CHEM] Stat
[2021-09-22 19:51] LABS: BLOOD UREA NITROGEN,BUN 21 mg/dL (7.0-18.0); CARBON DIOXIDE,CO2 27.4 mmol/L (21.0-32.0); CHLORIDE,CL 100 mmol/L (98-107); GLUCOSE RANDOM 104 mg/dL (74-106); POTASSIUM,K 4.6 mmol/L (3.5-5.1); SODIUM,NA 139 mmol/L (136-145)
[2021-09-22] MEDS ORDERED: cefTRIAXone 1 GM in Lidocaine 1% 4 ML IM ONE (19:54)
[2021-09-22] MEDS ORDERED: Ketorolac 60 MG/2 ML SDV IM ONE (19:55)
== END 2021-09-22 20:49 | disposition home or self-care (01) ==
LOC: MW.ED 17:21
DX: N30.01 Acute cystitis with hematuria (principal); Z88.0 Allergy status to penicillin; Z91.018 Allergy to other foods
CPT/HCPCS: 36415; 80053; 81001; 85025; 96372; 99284; J0696; J1885

== ENCOUNTER 2022-07-23 09:49 | Emergency (ER) | payer OTHER, BC ==
[2022-07-23] MEDS ORDERED: Ondansetron 4 MG Tab.DIS PO ONE (09:51)
[2022-07-23] MEDS ORDERED: LORazepam 1 MG Tab PO ONE (09:56)
[2022-07-23 10:36] LABS: CARBON DIOXIDE,CO2 25.3 mmol/L (21.0-32.0); POTASSIUM,K 4.2 mmol/L (3.5-5.1)
[2022-07-23] MEDS ORDERED: traMADol 50 MG Tab PO ONE (11:44)
== END 2022-07-23 12:56 | disposition home or self-care (01) ==
LOC: MW.ED 09:49
DX: S16.1XXA Strain of muscle, fascia and tendon at neck level, initial encounter (principal); F32.A Depression, unspecified; Z79.899 Other long term (current) drug therapy; Z88.0 Allergy status to penicillin; Z91.018 Allergy to other foods; V89.2XXA Person injured in unspecified motor-vehicle accident, traffic, initial encounter; W22.10XA Striking against or struck by unspecified automobile airbag, initial encounter
CPT/HCPCS: 36415; 70450; 71045; 72125; 73030; 80053; 84703; 85025; 99284; A9270

== ENCOUNTER 2024-10-04 09:11 | Emergency (ER) | payer BC ==
[2024-10-04 09:44] LABS: BASOPHILS ABSOLUTE AUTO 0.05 K/uL (0.00-0.20); BASOPHILS PERCENT AUTO 0.7 % (0.0-1.0); EOSINOPHILS ABSOLUTE AUTO 0.12 K/uL (0.00-0.45); EOSINOPHILS PERCENT AUTO 1.6 % (0.0-6.0); HEMATOCRIT 42.7 % (37.0-47.0); IMMATURE GRAN ABSOLUTE AUTO 0.01 K/uL (0.00-0.05); IMMATURE GRAN PERCENT AUTO 0.1 % (0.0-0.4); LYMPHOCYTES PERCENT AUTO 30.2 % (24.0-44.0); MEAN CORPUSCULAR HEMOGLOBIN 30.2 pg (28.0-32.0); MEAN CORPUSCULAR HGB CONC 35.1 g/dL (32.0-36.0); MEAN CORPUSCULAR VOLUME 85.9 fL (83.0-99.0); MEAN PLATELET VOLUME 8.3 fL (9.4-12.3); MONOCYTES ABSOLUTE AUTO 0.33 K/uL (0.00-0.80); MONOCYTES PERCENT AUTO 4.3 % (0.0-8.0); NEUTROPHILS PERCENT AUTO 63.1 % (41.0-71.0); PLATELET COUNT,PLT 386 K/uL (150-400); RED BLOOD CELL COUNT 4.97 M/uL (4.10-5.30); WHITE BLOOD CELL COUNT,WBC 7.61 K/uL (3.9-11.3)
[2024-10-04 10:07] LABS: A/G RATIO 1.1 (0.9-1.6); ALANINE AMINOTRANSFERASE,ALT 31 IU/L (14-63); ALKALINE PHOSPHATASE 40 U/L (46-116); ASPARTATE AMNIOTRANSFERASE,AST 21 IU/L (15-37); BILIRUBIN TOTAL 0.6 mg/dL (0.2-1.0); BLOOD UREA NITROGEN,BUN 11 mg/dL (7.0-18.0); CALCIUM 9.4 mg/dL (8.5-10.1); CARBON DIOXIDE,CO2 28.4 mmol/L (21.0-32.0); CHLORIDE,CL 100 mmol/L (98-107); EST CRCL DRUG DOSING (CG) 61.51 mL/min; GLUCOSE RANDOM 74 mg/dL (74-106); LIPASE 37 U/L (16-77); POTASSIUM,K 3.8 mmol/L (3.5-5.1); PROTEIN TOTAL,TP 7.6 g/dL (6.4-8.2); SODIUM,NA 137 mmol/L (136-145)
[2024-10-04 10:11] LABS: ESTIMATED GFR 75 mL/min (>60)
[2024-10-04] MEDS: Sodium Chloride 0.9% 2.5 ML Syringe FLUSH PRN (10:13)
[2024-10-04] MEDS: Sodium Chloride 0.9% 10 ML Syringe FLUSH PRN (10:13)
== END 2024-10-04 11:37 | disposition home or self-care (01) ==
LOC: MW.ED 09:11
DX: R07.89 Other chest pain (principal); Z79.899 Other long term (current) drug therapy; Z88.0 Allergy status to penicillin; Z91.018 Allergy to other foods; Z75.8 Other problems related to medical facilities and other health care
CPT/HCPCS: 36415; 71045; 80053; 83690; 84484; 85025; 85379; 93005; 99285; J3490

== ENCOUNTER 2025-02-28 17:03 | Emergency (ER) | payer BC ==
[2025-02-28 17:47] LABS: BASOPHILS ABSOLUTE AUTO 0.05 K/uL (0.00-0.20); BASOPHILS PERCENT AUTO 0.7 % (0.0-1.0); EOSINOPHILS ABSOLUTE AUTO 0.13 K/uL (0.00-0.45); EOSINOPHILS PERCENT AUTO 1.9 % (0.0-6.0); HEMATOCRIT 39.5 % (37.0-47.0); IMMATURE GRAN ABSOLUTE AUTO 0.01 K/uL (0.00-0.05); IMMATURE GRAN PERCENT AUTO 0.1 % (0.0-0.4); LYMPHOCYTES ABSOLUTE AUTO 2.82 K/uL (1.00-4.80); LYMPHOCYTES PERCENT AUTO 40.8 % (24.0-44.0); MEAN CORPUSCULAR HEMOGLOBIN 30.9 pg (28.0-32.0); MEAN CORPUSCULAR HGB CONC 35.4 g/dL (32.0-36.0); MEAN CORPUSCULAR VOLUME 87.2 fL (83.0-99.0); MEAN PLATELET VOLUME 8.3 fL (9.4-12.3); MONOCYTES ABSOLUTE AUTO 0.32 K/uL (0.00-0.80); MONOCYTES PERCENT AUTO 4.6 % (0.0-8.0); NEUTROPHILS ABSOLUTE AUTO 3.58 K/uL (1.80-7.70); NEUTROPHILS PERCENT AUTO 51.9 % (41.0-71.0); PLATELET COUNT,PLT 301 K/uL (150-400); RED BLOOD CELL COUNT 4.53 M/uL (4.10-5.30); WHITE BLOOD CELL COUNT,WBC 6.91 K/uL (3.9-11.3)
[2025-02-28 18:16] LABS: A/G RATIO 1.3 (0.9-1.6); BILIRUBIN TOTAL 0.6 mg/dL (0.2-1.0); CALCIUM 8.8 mg/dL (8.5-10.1); CARBON DIOXIDE,CO2 28.8 mmol/L (21.0-32.0); CREATININE 0.9 mg/dL (0.6-1.0); EST CRCL DRUG DOSING (CG) 68.35 mL/min; POTASSIUM,K 4.1 mmol/L (3.5-5.1); PROTEIN TOTAL,TP 7.2 g/dL (6.4-8.2)
[2025-02-28 18:42] LABS: APPEARANCE,URINE CLEAR; BILIRUBIN,URINE NEGATIVE (NEGATIVE); COLOR,URINE YELLOW; GLUCOSE,URINE NEGATIVE (NEGATIVE); KETONES,URINE NEGATIVE (NEGATIVE); LEUKOCYTE ESTERASE,URINE NEGATIVE (NEGATIVE); NITRITE,URINE NEGATIVE (NEGATIVE); OCCULT BLOOD,URINE NEGATIVE (NEGATIVE); PH,URINE 5.5 (5.0-8.0); PROTEIN,URINE NEGATIVE (NEGATIVE); UROBILINOGEN,URINE 0.2 EU/dL (<2.0)
[2025-02-28] MEDS: Sodium Chloride 0.9% 1,000 ML IV ONE (18:46)
[2025-02-28] MEDS: Ketorolac 30 MG/ML SDV IVPUSH ONE (18:53)
[2025-02-28] MEDS: Meclizine 25 MG Tab PO ONE (19:47)
== END 2025-02-28 20:05 | disposition home or self-care (01) ==
LOC: MW.ED 17:03
DX: R30.0 Dysuria (principal); R53.1 Weakness; M54.2 Cervicalgia; Z86.59 Personal history of other mental and behavioral disorders; Z87.440 Personal history of urinary (tract) infections; Z88.1 Allergy status to other antibiotic agents; Z91.018 Allergy to other foods; Z79.899 Other long term (current) drug therapy
CPT/HCPCS: 36415; 80053; 81003; 81025; 83690; 85025; 93005; 96361; 96374; 99284; A9270; J1885; J7030; 93010

== ENCOUNTER 2025-06-18 12:19 | Emergency (ER) | payer BC ==
[2025-06-18 13:02] LABS: BASOPHILS ABSOLUTE AUTO 0.05 K/uL (0.00-0.20); BASOPHILS PERCENT AUTO 0.7 % (0.0-1.0); EOSINOPHILS ABSOLUTE AUTO 0.12 K/uL (0.00-0.45); EOSINOPHILS PERCENT AUTO 1.8 % (0.0-6.0); IMMATURE GRAN ABSOLUTE AUTO 0.02 K/uL (0.00-0.05); IMMATURE GRAN PERCENT AUTO 0.3 % (0.0-0.4); LYMPHOCYTES ABSOLUTE AUTO 2.02 K/uL (1.00-4.80); LYMPHOCYTES PERCENT AUTO 30.0 % (24.0-44.0); MEAN PLATELET VOLUME 8.6 fL (9.4-12.3); MONOCYTES ABSOLUTE AUTO 0.34 K/uL (0.00-0.80); MONOCYTES PERCENT AUTO 5.1 % (0.0-8.0); NEUTROPHILS ABSOLUTE AUTO 4.18 K/uL (1.80-7.70); NEUTROPHILS PERCENT AUTO 62.1 % (41.0-71.0); NRBC ABSOLUTE 0.00 K/uL (0.00-0.02); NRBC PERCENT 0.0 /100WBC (0.0-0.2); PLATELET COUNT,PLT 301 K/uL (150-400); RED BLOOD CELL COUNT 4.59 M/uL (4.10-5.30); WHITE BLOOD CELL COUNT,WBC 6.73 K/uL (3.9-11.3)
[2025-06-18] MEDS: Ketorolac 30 MG/ML SDV IVPUSH ONE (13:06)
[2025-06-18] MEDS: diphenhydrAMINE 50 MG/ML SDV IVPUSH ONE (13:07)
[2025-06-18] MEDS: Prochlorperazine 10 MG/2 ML SDV IVPUSH ONE (13:08)
[2025-06-18 13:11] LABS: A/G RATIO 1.2 (0.9-1.6); ALANINE AMINOTRANSFERASE,ALT 26.0 IU/L (14-63); ASPARTATE AMNIOTRANSFERASE,AST 17.0 IU/L (15-37); BILIRUBIN TOTAL 0.5 mg/dL (0.2-1.0); BLOOD UREA NITROGEN,BUN 25.0 mg/dL (7.0-18.0); CARBON DIOXIDE,CO2 26.2 mmol/L (21.0-32.0); CHLORIDE,CL 103.0 mmol/L (98-107); CREATININE 1.1 mg/dL (0.6-1.0); EST CRCL DRUG DOSING (CG) 55.92 mL/min; GLUCOSE RANDOM 86.0 mg/dL (74-106); POTASSIUM,K 4.0 mmol/L (3.5-5.1); PROTEIN TOTAL,TP 7.1 g/dL (6.4-8.2); SODIUM,NA 137.0 mmol/L (136-145)
[2025-06-18 13:12] LABS: ESTIMATED GFR 67.0 mL/min (>60)
== END 2025-06-18 14:40 | disposition home or self-care (01) ==
LOC: MW.ED 12:19
DX: G43.909 Migraine, unspecified, not intractable, without status migrainosus (principal); E86.0 Dehydration; Z86.16 Personal history of COVID-19; Z88.0 Allergy status to penicillin; Z91.018 Allergy to other foods; Z79.899 Other long term (current) drug therapy; Z75.3 Unavailability and inaccessibility of health-care facilities
CPT/HCPCS: 36415; 70450; 80053; 83735; 84703; 85025; 96361; 96374; 96375; 99284; J0780; J1100; J1200; J1885; J7030; 99283